=== PATIENT | male | born 1950 | race Caucasian/White ===

== ENCOUNTER → 2019-01-17 | Outpatient (CLI) | payer MEDICARE, OTHER ==
--- NOTE | 2019-01-17 16:14 | ECGEPIP ---
[facility] Test Date: 2019-01-17 Pat Name: LORNA CUTLER Department: Room: - Gender: Male Stiff Neck Loader: REJI : 1950 Requested By: Shital Alexis Order Number: [id number] Reading MD: Prasanna Lackey Measurements Intervals Rew Rate: 73 P: 68 AK: 165 QRS: QRSD: 145 T: 36 QT: 367 QTc: 406 Interpretive Statements SINUS RHYTHM INDETERMINATE AXIS Low QRS complex voltage in the limb leads RIGHT BUNDLE BRANCH BLOCK Comparison tracing not on file Electronically Signed on 01-17-2019 16:14:14 EDT by Prasanna Lackey
== END ==
LOC: M EKG 09:54
PROVIDERS: ATTEND Orthopaedic Surgery
DX: Z00.00 Encounter for general adult medical examination without abnormal findings (principal)

== ENCOUNTER → 2023-06-19 | Outpatient (REF) | payer MEDICARE, OTHER | LOC: M LAB REF 14:36 | PROVIDERS: ATTEND Surgery | DX: C43.9 Malignant melanoma of skin, unspecified (principal); L57.8 Other skin changes due to chronic exposure to nonionizing radiation ==

== ENCOUNTER → 2024-09-21 | Outpatient (CLI) | payer MEDICARE, OTHER | LOC: M RAD 14:30 | PROVIDERS: ATTEND Internal Medicine Critical Care Medicine | DX: Z12.2 Encounter for screening for malignant neoplasm of respiratory organs (principal); Z87.891 Personal history of nicotine dependence; J98.11 Atelectasis; I25.10 Atherosclerotic heart disease of native coronary artery without angina pectoris; I70.0 Atherosclerosis of aorta; J47.9 Bronchiectasis, uncomplicated ==